=== PATIENT | male | born 1935 | race Caucasian/White ===

== ENCOUNTER 2019-01-29 20:50 | Inpatient (IN) ==
[2019-01-29] MEDS ORDERED: PANTOPRAZOLE 40 MG VIAL IV STA (21:22)
[2019-01-29 21:53] LABS: Basophils # 0.1 10*3/uL (0.0-0.2); Basophils % 0.5 % (0.0-0.8); Eosinophils # 0.1 10*3/uL (0.0-0.87); Eosinophils % 0.5 % (0.00-10.9); Hematocrit 34.4 VOL% (42.0-52.0); Hemoglobin 11.2 GM/DL (14.0-18.0); Immature Granulocytes % 0.6 %; Immature Granulocytes Absolute 0.09 #; Lymphocytes # 1.5 10*3/uL (1.4-4.0); Lymphocytes % 10.4 % (21.2-54.2); Mean Corpuscular HGB Conc 32.6 GM/DL (32-36); Mean Corpuscular Volume 95.8 FL (87-102); Mean Platelet Volume 9.5 FL (9.6-12.0); Monocytes % 4.9 % (1.7-12.7); Neutrophils % 83.1 % (38.7-73.9); Platelet Count 376 T/CUMM (130-400); Red Blood Count 3.59 MC/CUMM (3.8-5.5); White Blood Count 14.8 T/CUMM (4-12)
[2019-01-29 22:06] LABS: INR 4.5
[2019-01-29 22:09] LABS: PT Patient Result 48.4 SECS
[2019-01-29 22:17] LABS: Alanine Aminotransferase 14 U/L (16-61); Albumin 3.2 G/DL (3.4-5.0); Alkaline Phosphatase 75 U/L (45-117); Aspartate Amino Transferase 17 U/L (0-37); Blood Urea Nitrogen 33 MG/DL (7-18); Calcium 9.6 MG/DL (8.5-10.1); Glucose 189 MG/DL (74-106); Osmolality,Calculated 281.1 MOS/KG (273-304); Total Protein 7.4 G/DL (6.4-8.3)
[2019-01-29] MEDS ORDERED: POTASSIUM CHLORIDE 20 MEQ TABLET PO STA (22:32)
[2019-01-29] MEDS ORDERED: MORPHINE 4 MG/1 ML VIAL IV PRN (22:41)
[2019-01-29] MEDS ORDERED: NICOTINE 21 MG/24 HR PATCH TRANSDERM PRN (22:41)
[2019-01-29] MEDS ORDERED: diphenhydrAMINE CAP 25 MG CAPSULE PO PRN (22:41)
[2019-01-29] MEDS ORDERED: ONDANSETRON 4 MG/2 ML VIAL IV PRN (22:41)
[2019-01-29] MEDS ORDERED: PROMETHAZINE 25 MG/1 ML VIAL IM PRN (22:41)
[2019-01-30 00:54] LABS: Basophils # 0.1 10*3/uL (0.0-0.2); Basophils % 0.3 % (0.0-0.8); Eosinophils # 0.1 10*3/uL (0.0-0.87); Eosinophils % 0.5 % (0.00-10.9); Hematocrit 32.3 VOL% (42.0-52.0); Hemoglobin 10.7 GM/DL (14.0-18.0); Immature Granulocytes % 0.7 %; Lymphocytes % 13.8 % (21.2-54.2); Mean Corpuscular HGB Conc 33.1 GM/DL (32-36); Mean Corpuscular Volume 95.3 FL (87-102); Mean Platelet Volume 9.7 FL (9.6-12.0); Monocytes % 5.5 % (1.7-12.7); Neutrophils % 79.2 % (38.7-73.9); Platelet Count 371 T/CUMM (130-400); Red Blood Count 3.39 MC/CUMM (3.8-5.5); Red Cell Distribution Width 14.1 % (9.3-17.3); White Blood Count 14.3 T/CUMM (4-12)
[2019-01-30] MEDS: PANTOPRAZOLE INJ 200 MG in SODIUM CHLORIDE 0.9% 250 ML IV SCH (00:57)
[2019-01-30] MEDS: SODIUM CHLORIDE 0.9% 1,000 ML IV SCH ×3 (01:38→20:48)
[2019-01-30] MEDS ORDERED: MAGNESIUM SULF RIDER 4 GM in PREMIX 1 EACH IV PRN (04:33)
[2019-01-30] MEDS ORDERED: MAGNESIUM SULF RIDER 2 GM in PREMIX 1 EACH IV PRN (04:33)
[2019-01-30 05:04] LABS: Basophils # 0.1 10*3/uL (0.0-0.2); Basophils % 0.5 % (0.0-0.8); Eosinophils # 0.1 10*3/uL (0.0-0.87); Eosinophils % 0.8 % (0.00-10.9); Hematocrit 32.6 VOL% (42.0-52.0); Hemoglobin 10.7 GM/DL (14.0-18.0); Immature Granulocytes % 0.6 %; Immature Granulocytes Absolute 0.08 #; Lymphocytes # 2.3 10*3/uL (1.4-4.0); Lymphocytes % 15.5 % (21.2-54.2); Mean Corpuscular HGB Conc 32.8 GM/DL (32-36); Mean Corpuscular Volume 95.6 FL (87-102); Mean Platelet Volume 9.7 FL (9.6-12.0); Monocytes % 5.9 % (1.7-12.7); Neutrophils % 76.7 % (38.7-73.9); Platelet Count 357 T/CUMM (130-400); Red Blood Count 3.41 MC/CUMM (3.8-5.5); White Blood Count 14.5 T/CUMM (4-12)
[2019-01-30 05:46] LABS: Bilirubin,Total 0.6 MG/DL (0.2-1.0); Calcium 9.3 MG/DL (8.5-10.1); Total Protein 6.9 G/DL (6.4-8.3)
[2019-01-30] MEDS: POTASSIUM CHLORIDE RIDER 10 MEQ in PREMIX 1 EACH IV PRN ×11 (06:06→22:00)
[2019-01-30 08:15] LABS: Basophils # 0.1 10*3/uL (0.0-0.2); Basophils % 0.4 % (0.0-0.8); Eosinophils # 0.1 10*3/uL (0.0-0.87); Hemoglobin 10.5 GM/DL (14.0-18.0); Immature Granulocytes % 0.6 %; Immature Granulocytes Absolute 0.09 #; Lymphocytes # 2.3 10*3/uL (1.4-4.0); Lymphocytes % 15.9 % (21.2-54.2); Mean Corpuscular HGB Conc 31.8 GM/DL (32-36); Mean Corpuscular Volume 95.9 FL (87-102); Mean Platelet Volume 9.7 FL (9.6-12.0); Monocytes % 5.8 % (1.7-12.7); Neutrophils % 76.3 % (38.7-73.9); Platelet Count 367 T/CUMM (130-400); Red Blood Count 3.44 MC/CUMM (3.8-5.5); Red Cell Distribution Width 14.1 % (9.3-17.3); White Blood Count 14.4 T/CUMM (4-12)
[2019-01-30 11:54] LABS: Basophils # 0.1 10*3/uL (0.0-0.2); Basophils % 0.4 % (0.0-0.8); Eosinophils # 0.2 10*3/uL (0.0-0.87); Eosinophils % 0.8 % (0.00-10.9); Hematocrit 34.5 VOL% (42.0-52.0); Hemoglobin 11.1 GM/DL (14.0-18.0); Immature Granulocytes % 0.6 %; Immature Granulocytes Absolute 0.11 #; Lymphocytes # 2.7 10*3/uL (1.4-4.0); Lymphocytes % 14.8 % (21.2-54.2); Mean Corpuscular HGB Conc 32.2 GM/DL (32-36); Mean Corpuscular Volume 96.9 FL (87-102); Mean Platelet Volume 9.4 FL (9.6-12.0); Monocytes % 5.9 % (1.7-12.7); Neutrophils % 77.5 % (38.7-73.9); Platelet Count 388 T/CUMM (130-400); Red Blood Count 3.56 MC/CUMM (3.8-5.5); Red Cell Distribution Width 14.1 % (9.3-17.3); White Blood Count 18.2 T/CUMM (4-12)
[2019-01-30] MEDS: POTASSIUM CHLORIDE 20 MEQ TABLET PO SCH ×2 (19:02→22:00)
[2019-01-31] MEDS: POTASSIUM CHLORIDE 20 MEQ TABLET PO SCH (03:38)
[2019-01-31] MEDS: POTASSIUM CHLORIDE RIDER 10 MEQ in PREMIX 1 EACH IV PRN ×9 (03:39→22:42)
[2019-01-31] MEDS ORDERED: METOPROLOL TARTRATE 5 MG/5 ML VIAL IV ONE (04:40)
[2019-01-31 06:54] LABS: Amorphous Crystals,Urine Moderate /HPF (Few); Apearance,Urine CLEAR (Clear); Bilirubin,Urine Negative (Negative); Blood, Urine Small mg/dL (Negative); Glucose,Urine (UA) Negative (Negative); Ketones,Urine Negative (Negative); Nitrite,Urine Negative (Negative); Protein,Urine Negative; RBC,Urine 2 /HPF (0-4); Squamous Epithelial Cell,Urine Occasional /HPF (0-10); Urine Color Yellow (Yellow); Urine Urobilinogen < 2.0 EU/DL (0.2-1.0); WBC,Urine 2 /HPF (0-6)
[2019-01-31 08:12] LABS: INR 2.6
[2019-01-31 08:13] LABS: PT Patient Result 27.5 SECS
[2019-01-31 08:16] LABS: Basophils # 0.1 10*3/uL (0.0-0.2); Basophils % 0.5 % (0.0-0.8); Eosinophils # 0.2 10*3/uL (0.0-0.87); Eosinophils % 1.9 % (0.00-10.9); Hematocrit 28.1 VOL% (42.0-52.0); Immature Granulocytes % 0.3 %; Immature Granulocytes Absolute 0.04 #; Lymphocytes # 2.4 10*3/uL (1.4-4.0); Lymphocytes % 20.7 % (21.2-54.2); Mean Corpuscular HGB Conc 32.4 GM/DL (32-36); Mean Corpuscular Volume 97.2 FL (87-102); Mean Platelet Volume 9.7 FL (9.6-12.0); Neutrophils % 70.6 % (38.7-73.9); Platelet Count 324 T/CUMM (130-400); Red Blood Count 2.89 MC/CUMM (3.8-5.5); Red Cell Distribution Width 14.4 % (9.3-17.3); White Blood Count 11.8 T/CUMM (4-12)
[2019-01-31 08:17] LABS: Hemoglobin 9.1 GM/DL (14.0-18.0)
[2019-01-31 08:26] LABS: Albumin 2.8 G/DL (3.4-5.0); Bilirubin,Total 0.5 MG/DL (0.2-1.0); Calcium 8.7 MG/DL (8.5-10.1); Osmolality,Calculated 283.4 MOS/KG (273-304)
[2019-01-31] MEDS ORDERED: ETOMIDATE 20 MG/10 ML VIAL IV ONE (09:00)
[2019-01-31] MEDS ORDERED: PROPOFOL 200 MG/20 ML VIAL IV ONE (09:00)
[2019-01-31] MEDS ORDERED: LIDOCAINE 2% 5 ML VIAL ONE (09:00)
[2019-01-31] MEDS ORDERED: PHYTONADIONE 5 MG/5 ML ORAL.SYR PO ONE (09:07)
[2019-01-31] MEDS ORDERED: EPINEPHrine 1 MG/ML VIAL ONE (09:14)
[2019-01-31] MEDS: PANTOPRAZOLE INJ 200 MG in SODIUM CHLORIDE 0.9% 250 ML IV SCH (10:42)
[2019-01-31] MEDS: SODIUM CHLORIDE 0.9% 1,000 ML IV SCH (14:08)
[2019-01-31] MEDS: FINASTERIDE 5 MG TABLET PO SCH (14:30)
[2019-01-31] MEDS: LEVOTHYROXINE 88 MCG TABLET PO SCH (14:30)
[2019-01-31] MEDS: amLODIPine 5 MG TABLET PO SCH (14:30)
[2019-01-31] MEDS: ATORVASTATIN 20 MG TABLET PO SCH (14:30)
[2019-01-31] MEDS: TAMSULOSIN 0.4 MG CAPSULE PO SCH (14:30)
[2019-01-31] MEDS ORDERED: MONTELUKAST 10 MG TABLET PO SCH (21:00)
[2019-02-01 02:09] LABS: Basophils % 0.4 % (0.0-0.8); Eosinophils # 0.3 10*3/uL (0.0-0.87); Eosinophils % 3.2 % (0.00-10.9); Hematocrit 27.4 VOL% (42.0-52.0); Hemoglobin 8.7 GM/DL (14.0-18.0); Immature Granulocytes % 0.4 %; Immature Granulocytes Absolute 0.04 #; Lymphocytes % 20.7 % (21.2-54.2); Mean Corpuscular HGB Conc 31.8 GM/DL (32-36); Mean Corpuscular Volume 98.6 FL (87-102); Mean Platelet Volume 9.9 FL (9.6-12.0); Neutrophils % 69.3 % (38.7-73.9); Platelet Count 298 T/CUMM (130-400); Red Blood Count 2.78 MC/CUMM (3.8-5.5); Red Cell Distribution Width 14.5 % (9.3-17.3); White Blood Count 9.6 T/CUMM (4-12)
[2019-02-01 02:17] LABS: INR 1.4; PT Patient Result 15.2 SECS
[2019-02-01] MEDS: LEVOTHYROXINE 88 MCG TABLET PO SCH (06:09)
[2019-02-01 07:40] LABS: Albumin 2.7 G/DL (3.4-5.0); Bilirubin,Total 0.6 MG/DL (0.2-1.0); Calcium 8.6 MG/DL (8.5-10.1); Osmolality,Calculated 281.3 MOS/KG (273-304); Total Protein 5.9 G/DL (6.4-8.3)
[2019-02-01] MEDS: SODIUM CHLORIDE 0.9% 1,000 ML IV SCH ×3 (08:00→12:51)
[2019-02-01] MEDS ORDERED: LIDOCAINE 2% 5 ML VIAL ONE (09:00)
[2019-02-01] MEDS ORDERED: PROPOFOL 200 MG/20 ML VIAL IV ONE (09:00)
[2019-02-01] MEDS: FINASTERIDE 5 MG TABLET PO SCH (10:03)
[2019-02-01] MEDS: ATORVASTATIN 20 MG TABLET PO SCH (10:03)
[2019-02-01] MEDS: TAMSULOSIN 0.4 MG CAPSULE PO SCH (10:03)
[2019-02-01] MEDS: POTASSIUM CHLORIDE RIDER 10 MEQ in PREMIX 1 EACH IV PRN ×2 (10:03→12:45)
[2019-02-01] MEDS: amLODIPine 5 MG TABLET PO SCH (10:03)
[2019-02-01 11:45] LABS: Hematocrit 29.4 VOL% (42.0-52.0); Hemoglobin 9.3 GM/DL (14.0-18.0)
[2019-02-01] MEDS ORDERED: POTASSIUM CHLORIDE 20 MEQ TABLET PO SCH (13:49)
[2019-02-01] MEDS: PANTOPRAZOLE INJ 200 MG in SODIUM CHLORIDE 0.9% 250 ML IV SCH (14:21)
[2019-02-01 16:49] VITALS: BP 123/60
[2019-02-02] MEDS ORDERED: LOSARTAN 50 MG TABLET PO SCH (09:00)
[2019-02-02] MEDS ORDERED: PANTOPRAZOLE 40 MG TABLET PO SCH (09:00)
[2019-02-02] MEDS ORDERED: PROPRANOLOL 20 MG TABLET PO SCH (09:00)
== END 2019-02-01 16:59 | DRG 813 ==
LOC: EDUNIT# → N.ED 20:50 → N.EDINP 20:50 → N.5E 23:36
PROVIDERS: ADMIT Internal Medicine; ATTEND Internal Medicine

== ENCOUNTER 2019-08-18 13:47 | Inpatient (IN) ==
[2019-08-18 15:14] LABS: Basophils # 0.1 10*3/uL (0.0-0.2); Basophils % 0.3 % (0.0-0.8); Eosinophils # 0.1 10*3/uL (0.0-0.87); Eosinophils % 0.5 % (0.00-10.9); Hematocrit 39.5 VOL% (42.0-52.0); Hemoglobin 13.6 GM/DL (14.0-18.0); Immature Granulocytes % 0.5 %; Immature Granulocytes Absolute 0.08 #; Lymphocytes # 2.8 10*3/uL (1.4-4.0); Mean Corpuscular HGB Conc 34.4 GM/DL (32-36); Mean Corpuscular Volume 86.8 FL (87-102); Mean Platelet Volume 9.3 FL (9.6-12.0); Monocytes % 6.6 % (1.7-12.7); Neutrophils % 76.1 % (38.7-73.9); Platelet Count 459 T/CUMM (130-400); Red Blood Count 4.55 MC/CUMM (3.8-5.5); Red Cell Distribution Width 14.4 % (9.3-17.3); White Blood Count 17.3 T/CUMM (4-12)
[2019-08-18 15:22] LABS: INR 1.1; PT Patient Result 12.1 SECS (9.6-12.2)
[2019-08-18 15:39] LABS: Calcium 9.1 MG/DL (8.5-10.1); Osmolality,Calculated 264.1 MOS/KG (273-304)
[2019-08-18] MEDS ORDERED: POTASSIUM CHLORIDE 8 MEQ CAPSULE PO STA (16:08)
[2019-08-18] MEDS ORDERED: MAGNESIUM SULF RIDER 4 GM in PREMIX 1 EACH IV PRN (17:13)
[2019-08-18] MEDS ORDERED: MAGNESIUM SULF RIDER 2 GM in PREMIX 1 EACH IV PRN (17:13)
[2019-08-18] MEDS ORDERED: ACETAMINOPHEN 325 MG TABLET PO PRN (17:14)
[2019-08-18] MEDS ORDERED: ONDANSETRON 4 MG/2 ML VIAL IV PRN (17:14)
[2019-08-18] MEDS ORDERED: chlordiazePOXIDE 10 MG CAPSULE PO PRN (17:52)
[2019-08-18] MEDS ORDERED: LORazepam 2 MG/1 ML VIAL IV PRN (17:54)
[2019-08-18] MEDS ORDERED: cefTRIAXone 1,000 MG in SYRINGE 1 EACH IV SCH (18:00)
[2019-08-18] MEDS: SODIUM CHLORIDE 0.9% 1,000 ML IV SCH (21:10)
[2019-08-18] MEDS: MONTELUKAST 10 MG TABLET PO SCH (21:11)
[2019-08-18] MEDS: LEVOTHYROXINE 88 MCG TABLET PO SCH (21:11)
[2019-08-18] MEDS: ASPIRIN EC 81 MG TABLET PO SCH (21:11)
[2019-08-18] MEDS: POTASSIUM CHLORIDE 20 MEQ TABLET PO PRN (21:11)
[2019-08-18] MEDS: ATORVASTATIN 20 MG TABLET PO SCH (21:12)
[2019-08-18] MEDS: PANTOPRAZOLE 40 MG TABLET PO SCH (21:12)
[2019-08-18] MEDS: WARFARIN 3 MG TABLET PO SCH (21:12)
[2019-08-18] MEDS: TAMSULOSIN 0.4 MG CAPSULE PO SCH (21:12)
[2019-08-18 23:02] LABS: Calcium 9.6 MG/DL (8.5-10.1); Osmolality,Calculated 263.1 MOS/KG (273-304)
[2019-08-19 03:19] LABS: Basophils # 0.1 10*3/uL (0.0-0.2); Basophils % 0.5 % (0.0-0.8); Eosinophils # 0.1 10*3/uL (0.0-0.87); Eosinophils % 0.8 % (0.00-10.9); Hematocrit 39.6 VOL% (42.0-52.0); Hemoglobin 13.2 GM/DL (14.0-18.0); Immature Granulocytes % 0.6 %; Immature Granulocytes Absolute 0.08 #; Lymphocytes # 2.2 10*3/uL (1.4-4.0); Lymphocytes % 15.7 % (21.2-54.2); Mean Corpuscular HGB Conc 33.3 GM/DL (32-36); Mean Platelet Volume 9.3 FL (9.6-12.0); Monocytes % 6.7 % (1.7-12.7); Neutrophils % 75.7 % (38.7-73.9); Platelet Count 408 T/CUMM (130-400); Red Cell Distribution Width 14.5 % (9.3-17.3); White Blood Count 13.9 T/CUMM (4-12)
[2019-08-19 03:57] LABS: Calcium 8.9 MG/DL (8.5-10.1); Osmolality,Calculated 268.8 MOS/KG (273-304); Risk Ratio 3.14; Thyroid Stimulating Hormone 0.183 uIU/ml (0.358-3.74); VLDL CHOLESTEROL 22.6 MG/DL
[2019-08-19] MEDS: POTASSIUM CHLORIDE 20 MEQ TABLET PO PRN ×2 (05:47→09:17)
[2019-08-19 08:27] LABS: INR 1.2; PT Patient Result 12.7 SECS (9.6-12.2)
[2019-08-19] MEDS: SODIUM CHLORIDE 0.9% 1,000 ML IV SCH ×2 (08:37→09:23)
[2019-08-19 08:41] LABS: Apearance,Urine CLOUDY (Clear); Bacteria,Urine Moderate /HPF (Few); Bilirubin,Urine Negative (Negative); Blood, Urine Negative (Negative); Glucose,Urine (UA) Negative (Negative); Ketones,Urine Negative (Negative); Nitrite,Urine Negative (Negative); Protein,Urine Negative; RBC,Urine 14 /HPF (0-4); Urine Color Yellow (Yellow); Urine Specific Gravity 1.011 (1.001-1.035); Urine Urobilinogen < 2.0 EU/DL (0.2-1.0); WBC,Urine 799 /HPF (0-6)
[2019-08-19] MEDS: FERROUS SULFATE 325 MG TABLET PO SCH (09:17)
[2019-08-19] MEDS: FOLIC ACID 1 MG TABLET PO SCH (09:17)
[2019-08-19] MEDS: THIAMINE 100 MG TABLET PO SCH (09:18)
[2019-08-19] MEDS: MAGNESIUM OXIDE 400 MG TABLET PO SCH (09:18)
[2019-08-19] MEDS: MULTIVITAMIN (BEROCCA) TABLET PO SCH (09:18)
[2019-08-19] MEDS: FINASTERIDE 5 MG TABLET PO SCH (09:18)
[2019-08-19] MEDS ORDERED: POTASSIUM CHLORIDE IV SCH (13:00)
[2019-08-19] MEDS ORDERED: SODIUM CHLORIDE IV SCH (13:00)
[2019-08-19] MEDS ORDERED: cefTRIAXone 1,000 MG in SYRINGE 1 EACH IV SCH (13:30)
[2019-08-19] MEDS: cefTRIAXone 1,000 MG in SYRINGE 1 EACH IV SCH (14:54)
[2019-08-19] MEDS: SODIUM CHLOR 0.9% KCL 40 MEQ 40 MEQ/1,000 ML BAG IV SCH (15:02)
[2019-08-19] MEDS: WARFARIN 3 MG TABLET PO SCH (17:34)
[2019-08-19] MEDS: PANTOPRAZOLE 40 MG TABLET PO SCH (22:20)
[2019-08-19] MEDS: ASPIRIN EC 81 MG TABLET PO SCH (22:20)
[2019-08-19] MEDS: LEVOTHYROXINE 88 MCG TABLET PO SCH (22:20)
[2019-08-19] MEDS: MONTELUKAST 10 MG TABLET PO SCH (22:20)
[2019-08-19] MEDS: TAMSULOSIN 0.4 MG CAPSULE PO SCH (22:20)
[2019-08-19] MEDS: ATORVASTATIN 20 MG TABLET PO SCH (22:21)
[2019-08-20] MEDS: SODIUM CHLOR 0.9% KCL 40 MEQ 40 MEQ/1,000 ML BAG IV SCH ×2 (04:34→17:19)
[2019-08-20 06:49] LABS: Basophils # 0.1 10*3/uL (0.0-0.2); Basophils % 0.5 % (0.0-0.8); Eosinophils # 0.1 10*3/uL (0.0-0.87); Hematocrit 34.3 VOL% (42.0-52.0); Hemoglobin 11.2 GM/DL (14.0-18.0); Immature Granulocytes % 0.3 %; Immature Granulocytes Absolute 0.04 #; Lymphocytes # 1.8 10*3/uL (1.4-4.0); Lymphocytes % 15.3 % (21.2-54.2); Mean Corpuscular HGB Conc 32.7 GM/DL (32-36); Mean Corpuscular Volume 90.3 FL (87-102); Mean Platelet Volume 9.6 FL (9.6-12.0); Monocytes % 6.6 % (1.7-12.7); Neutrophils % 76.3 % (38.7-73.9); Platelet Count 374 T/CUMM (130-400); Red Cell Distribution Width 14.7 % (9.3-17.3); White Blood Count 11.7 T/CUMM (4-12)
[2019-08-20 06:55] LABS: INR 1.2
[2019-08-20 07:02] LABS: Calcium 8.4 MG/DL (8.5-10.1); Osmolality,Calculated 272.2 MOS/KG (273-304)
[2019-08-20] MEDS ORDERED: POTASSIUM CHLORIDE 20 MEQ TABLET PO ONE (07:36)
[2019-08-20] MEDS: MAGNESIUM OXIDE 400 MG TABLET PO SCH (08:09)
[2019-08-20] MEDS: MULTIVITAMIN (BEROCCA) TABLET PO SCH (08:09)
[2019-08-20] MEDS: FOLIC ACID 1 MG TABLET PO SCH (08:09)
[2019-08-20] MEDS: THIAMINE 100 MG TABLET PO SCH (08:09)
[2019-08-20] MEDS: FERROUS SULFATE 325 MG TABLET PO SCH (08:09)
[2019-08-20] MEDS: FINASTERIDE 5 MG TABLET PO SCH (08:09)
[2019-08-20] MEDS ORDERED: WARFARIN 2 MG TABLET PO SCH (09:00)
[2019-08-20] MEDS ORDERED: WARFARIN 3 MG TABLET PO SCH (09:00)
[2019-08-20] MEDS: cefTRIAXone 1,000 MG in SYRINGE 1 EACH IV SCH (13:30)
[2019-08-20] MEDS: WARFARIN 5 MG TABLET PO SCH (17:19)
[2019-08-20] MEDS: ASPIRIN EC 81 MG TABLET PO SCH (22:30)
[2019-08-20] MEDS: LEVOTHYROXINE 88 MCG TABLET PO SCH (22:31)
[2019-08-20] MEDS: MONTELUKAST 10 MG TABLET PO SCH (22:31)
[2019-08-20] MEDS: ATORVASTATIN 20 MG TABLET PO SCH (22:31)
[2019-08-20] MEDS: TAMSULOSIN 0.4 MG CAPSULE PO SCH (22:31)
[2019-08-20] MEDS: PANTOPRAZOLE 40 MG TABLET PO SCH (22:31)
[2019-08-21 04:32] LABS: Basophils % 0.3 % (0.0-0.8); Eosinophils % 0.3 % (0.00-10.9); Hematocrit 34.3 VOL% (42.0-52.0); Hemoglobin 11.1 GM/DL (14.0-18.0); Immature Granulocytes % 0.6 %; Immature Granulocytes Absolute 0.09 #; Lymphocytes # 1.4 10*3/uL (1.4-4.0); Lymphocytes % 9.6 % (21.2-54.2); Mean Corpuscular HGB Conc 32.4 GM/DL (32-36); Mean Corpuscular Volume 92.5 FL (87-102); Mean Platelet Volume 9.1 FL (9.6-12.0); Neutrophils % 82.2 % (38.7-73.9); Platelet Count 365 T/CUMM (130-400); Red Blood Count 3.71 MC/CUMM (3.8-5.5); Red Cell Distribution Width 15.1 % (9.3-17.3); White Blood Count 14.3 T/CUMM (4-12)
[2019-08-21 04:43] LABS: INR 1.3
[2019-08-21 04:44] LABS: INR 1.3; PT Patient Result 14.1 SECS (9.6-12.2)
[2019-08-21 05:06] LABS: Calcium 8.8 MG/DL (8.5-10.1); Osmolality,Calculated 280.5 MOS/KG (273-304)
[2019-08-21] MEDS: SODIUM CHLOR 0.9% KCL 40 MEQ 40 MEQ/1,000 ML BAG IV SCH (08:08)
[2019-08-21] MEDS: MAGNESIUM OXIDE 400 MG TABLET PO SCH (10:02)
[2019-08-21] MEDS: FINASTERIDE 5 MG TABLET PO SCH (10:02)
[2019-08-21] MEDS: MULTIVITAMIN (BEROCCA) TABLET PO SCH (10:02)
[2019-08-21] MEDS: THIAMINE 100 MG TABLET PO SCH (10:02)
[2019-08-21] MEDS: FOLIC ACID 1 MG TABLET PO SCH (10:03)
[2019-08-21] MEDS: FERROUS SULFATE 325 MG TABLET PO SCH (10:03)
[2019-08-21] MEDS: POTASSIUM CHLORIDE 10 MEQ TABLET PO SCH ×2 (10:03→22:43)
[2019-08-21] MEDS: NEOMYCIN/POLYMYXIN/BACITRACIN OINT 0.9 GM PACK TOP SCH (14:35)
[2019-08-21] MEDS: cefTRIAXone 1,000 MG in SYRINGE 1 EACH IV SCH (14:35)
[2019-08-21] MEDS: WARFARIN 5 MG TABLET PO SCH (18:20)
[2019-08-21] MEDS: TAMSULOSIN 0.4 MG CAPSULE PO SCH (22:44)
[2019-08-21] MEDS: ATORVASTATIN 20 MG TABLET PO SCH (22:44)
[2019-08-21] MEDS: PANTOPRAZOLE 40 MG TABLET PO SCH (22:44)
[2019-08-21] MEDS: MONTELUKAST 10 MG TABLET PO SCH (22:44)
[2019-08-21] MEDS: ASPIRIN EC 81 MG TABLET PO SCH (22:44)
[2019-08-21] MEDS: LEVOTHYROXINE 88 MCG TABLET PO SCH (22:44)
[2019-08-22 05:52] LABS: Basophils # 0.1 10*3/uL (0.0-0.2); Basophils % 0.4 % (0.0-0.8); Eosinophils # 0.1 10*3/uL (0.0-0.87); Eosinophils % 0.4 % (0.00-10.9); Hematocrit 35.2 VOL% (42.0-52.0); Hemoglobin 11.4 GM/DL (14.0-18.0); Immature Granulocytes % 0.5 %; Immature Granulocytes Absolute 0.08 #; Lymphocytes # 1.2 10*3/uL (1.4-4.0); Lymphocytes % 7.7 % (21.2-54.2); Mean Corpuscular HGB Conc 32.4 GM/DL (32-36); Mean Corpuscular Volume 91.2 FL (87-102); Mean Platelet Volume 9.1 FL (9.6-12.0); Monocytes % 4.4 % (1.7-12.7); Neutrophils % 86.6 % (38.7-73.9); Platelet Count 356 T/CUMM (130-400); Red Blood Count 3.86 MC/CUMM (3.8-5.5); Red Cell Distribution Width 14.9 % (9.3-17.3)
[2019-08-22 05:59] LABS: INR 1.4; PT Patient Result 15.1 SECS (9.6-12.2)
[2019-08-22 06:19] LABS: Calcium 8.8 MG/DL (8.5-10.1)
[2019-08-22] MEDS: FINASTERIDE 5 MG TABLET PO SCH (09:39)
[2019-08-22] MEDS: POTASSIUM CHLORIDE 10 MEQ TABLET PO SCH (09:39)
[2019-08-22] MEDS: THIAMINE 100 MG TABLET PO SCH (09:39)
[2019-08-22] MEDS: NEOMYCIN/POLYMYXIN/BACITRACIN OINT 0.9 GM PACK TOP SCH (09:39)
[2019-08-22] MEDS: MAGNESIUM OXIDE 400 MG TABLET PO SCH (09:39)
[2019-08-22] MEDS: FERROUS SULFATE 325 MG TABLET PO SCH (09:39)
[2019-08-22] MEDS: FOLIC ACID 1 MG TABLET PO SCH (09:39)
[2019-08-22] MEDS: MULTIVITAMIN (BEROCCA) TABLET PO SCH (09:39)
[2019-08-22 13:03] VITALS: BP 126/64
[2019-08-22] MEDS: cefTRIAXone 1,000 MG in SYRINGE 1 EACH IV SCH (14:57)
[2019-08-23] MEDS ORDERED: DOXYCYCLINE HYCLATE 100 MG CAPSULE PO SCH (09:00)
== END 2019-08-22 16:19 | disposition swing bed (61) | DRG 312 ==
LOC: EDBD → EDUNIT# → N.ED 13:47 → N.EDINP 17:14 → SUATTDRO 17:14 → N.TELES 17:49
PROVIDERS: ADMIT Internal Medicine; ATTEND Emergency Medicine

== ENCOUNTER 2019-11-08 09:50 | Inpatient (IN) ==
[2019-11-08] MEDS ORDERED: SODIUM CHLORIDE 0.9% 1,000 ML IV STA (09:56)
[2019-11-08 10:24] LABS: Basophils % 0.1 % (0.0-0.8); Immature Granulocytes % 1.9 %; Immature Granulocytes Absolute 0.64 #; Lymphocytes # 2.1 10*3/uL (1.4-4.0); Lymphocytes % 6.3 % (21.2-54.2); Mean Corpuscular HGB Conc 32.6 GM/DL (32-36); Mean Corpuscular Volume 94.5 FL (87-102); Mean Platelet Volume 10.4 FL (9.6-12.0); Monocytes % 3.4 % (1.7-12.7); Neutrophils % 88.3 % (38.7-73.9); Platelet Count 420 T/CUMM (130-400); Red Blood Count 1.82 MC/CUMM (3.8-5.5); Red Cell Distribution Width 16.3 % (9.3-17.3)
[2019-11-08 10:26] LABS: Hematocrit 17.2 VOL% (42.0-52.0); Hemoglobin 5.6 GM/DL (14.0-18.0)
[2019-11-08] MEDS ORDERED: SODIUM CHLORIDE 0.9% 1,000 ML IV PRN ×3 (10:31→12:24)
[2019-11-08 10:36] LABS: Hypochromasia 2+; Lymphocytes 3 % (20-55); Microcytosis Slight; Platelet Estimate Adequate; Segmented Neutrophils 94 % (50-85); Total Cells Counted 100
[2019-11-08 10:39] LABS: INR 4.4; Partial Thromboplastin Time 34.7 SECS (23.9-33.8)
[2019-11-08] MEDS ORDERED: PROTHROMBIN COMPLEX IV ONE (10:54)
[2019-11-08 10:59] LABS: Alanine Aminotransferase 16 U/L (16-61); Albumin 2.3 G/DL (3.4-5.0); Alkaline Phosphatase 56 U/L (45-117); Aspartate Amino Transferase 26 U/L (0-37); Blood Urea Nitrogen 100 MG/DL (7-18); Calcium 8.5 MG/DL (8.5-10.1); Estimated Glom Filtration Rate 17 ML/MIN; Glucose 206 MG/DL (74-106); Osmolality,Calculated 304.2 MOS/KG (273-304); Total Protein 5.1 G/DL (6.4-8.3)
[2019-11-08] MEDS ORDERED: LEVOFLOXACIN INJ 500 MG in PREMIX 1 EACH IV STA (11:08)
[2019-11-08] MEDS ORDERED: PANTOPRAZOLE 40 MG VIAL IV STA (11:10)
[2019-11-08] MEDS ORDERED: PHYTONADIONE 10 MG/1 ML AMP SUBCUT STA (11:20)
[2019-11-08] MEDS ORDERED: ONDANSETRON 4 MG/2 ML VIAL IV PRN (12:06)
[2019-11-08] MEDS ORDERED: FUROSEMIDE 20 MG/2 ML VIAL ONE (16:10)
[2019-11-08 18:45] LABS: Basophils # 0.1 10*3/uL (0.0-0.2); Basophils % 0.1 % (0.0-0.8); Hematocrit 26.6 VOL% (42.0-52.0); Hemoglobin 8.6 GM/DL (14.0-18.0); Immature Granulocytes % 2.2 %; Immature Granulocytes Absolute 0.73 #; Lymphocytes # 2.2 10*3/uL (1.4-4.0); Lymphocytes % 6.6 % (21.2-54.2); Mean Corpuscular HGB Conc 32.3 GM/DL (32-36); Mean Corpuscular Volume 93.3 FL (87-102); Mean Platelet Volume 10.2 FL (9.6-12.0); Monocytes % 4.2 % (1.7-12.7); NRBC # 0.03 10*3/uL; Neutrophils % 86.9 % (38.7-73.9); Platelet Count 302 T/CUMM (130-400); Red Blood Count 2.85 MC/CUMM (3.8-5.5); Red Cell Distribution Width 14.6 % (9.3-17.3); White Blood Count 33.8 T/CUMM (4-12)
[2019-11-08 19:05] LABS: Band Neutrophils 2 % (0-10); Lymphocytes 7 % (20-55); Metamyelocytes 1 %; Segmented Neutrophils 90 % (50-85); Total Cells Counted 100
[2019-11-08 19:06] LABS: Anisocytosis 1+; Macrocytosis 1+; Microcytosis Slight; Platelet Estimate Normal; Polychromasia 1+
[2019-11-08 19:14] LABS: Folate 12.6 NG/ML (5.4-24.0); Vitamin B12 457 PG/ML (211-911)
[2019-11-08 20:11] LABS: Sedimentation Rate-Westergren 43 MM/HR (0-20)
[2019-11-08] MEDS: SODIUM CHLORIDE 0.9% 1,000 ML IV SCH (21:41)
[2019-11-08] MEDS: PANTOPRAZOLE 40 MG VIAL IV SCH (21:42)
[2019-11-09 00:58] LABS: Hematocrit 18.1 VOL% (42.0-52.0)
[2019-11-09 01:03] LABS: Hemoglobin 5.9 GM/DL (14.0-18.0)
[2019-11-09 02:37] LABS: Basophils % 0.2 % (0.0-0.8); Hematocrit 21.4 VOL% (42.0-52.0); Immature Granulocytes % 1.4 %; Immature Granulocytes Absolute 0.37 #; Lymphocytes # 2.2 10*3/uL (1.4-4.0); Lymphocytes % 8.4 % (21.2-54.2); Mean Corpuscular HGB Conc 32.7 GM/DL (32-36); Mean Corpuscular Volume 91.8 FL (87-102); Mean Platelet Volume 10.3 FL (9.6-12.0); Monocytes % 5.3 % (1.7-12.7); NRBC # 0.05 10*3/uL; Neutrophils % 84.7 % (38.7-73.9); Platelet Count 267 T/CUMM (130-400); Red Blood Count 2.33 MC/CUMM (3.8-5.5); Red Cell Distribution Width 15.4 % (9.3-17.3); White Blood Count 26.2 T/CUMM (4-12)
[2019-11-09 02:46] LABS: INR 2.4
[2019-11-09 03:19] LABS: PT Patient Result 24.3 SECS (9.8-11.9)
[2019-11-09 03:29] LABS: Albumin 2.2 G/DL (3.4-5.0); Calcium 7.5 MG/DL (8.5-10.1); Total Protein 4.8 G/DL (6.4-8.3)
[2019-11-09 04:00] LABS: Hypochromasia 1+; Platelet Estimate Normal; Polychromasia Few
[2019-11-09] MEDS: POTASSIUM CHLORIDE RIDER 10 MEQ in PREMIX 1 EACH IV PRN ×7 (05:44→23:19)
[2019-11-09 06:38] LABS: Hematocrit 20.5 VOL% (42.0-52.0); Hemoglobin 6.9 GM/DL (14.0-18.0)
[2019-11-09] MEDS: SODIUM CHLORIDE 0.9% 1,000 ML IV SCH ×2 (07:59→18:31)
[2019-11-09] MEDS: PANTOPRAZOLE 40 MG VIAL IV SCH ×2 (08:56→21:24)
[2019-11-09] MEDS ORDERED: PANTOPRAZOLE 40 MG TABLET PO SCH (09:00)
[2019-11-09] MEDS ORDERED: FUROSEMIDE 40 MG/4 ML VIAL IV PRN ×2 (10:07→16:10)
[2019-11-09] MEDS ORDERED: SODIUM CHLORIDE 0.9% 1,000 ML IV PRN ×2 (10:07→10:34)
[2019-11-09] MEDS ORDERED: PHYTONADIONE 10 MG/1 ML AMP SUBCUT ONE (11:00)
[2019-11-09 15:49] LABS: Hematocrit 24.7 VOL% (42.0-52.0); Hemoglobin 8.2 GM/DL (14.0-18.0)
[2019-11-09 18:32] LABS: Hemoglobin 9.1 GM/DL (14.0-18.0)
[2019-11-09] MEDS: diphenhydrAMINE CAP 25 MG CAPSULE PO PRN (21:25)
[2019-11-09] MEDS: ACETAMINOPHEN 500 MG TABLET PO PRN (21:26)
[2019-11-09 21:49] LABS: Hematocrit 25.5 VOL% (42.0-52.0); Hemoglobin 8.5 GM/DL (14.0-18.0)
[2019-11-10] MEDS: POTASSIUM CHLORIDE RIDER 10 MEQ in PREMIX 1 EACH IV PRN ×8 (00:26→18:00)
[2019-11-10 02:04] LABS: Apearance,Urine CLEAR (Clear); Bilirubin,Urine Negative (Negative); Blood, Urine Negative (Negative); Glucose,Urine (UA) Negative (Negative); Ketones,Urine Negative (Negative); Nitrite,Urine Negative (Negative); Protein,Urine Negative; RBC,Urine <1 /HPF (0-4); Urine Color Straw (Yellow); Urine Specific Gravity 1.011 (1.001-1.035); Urine Urobilinogen < 2.0 EU/DL (0.2-1.0); WBC,Urine <1 /HPF (0-6)
[2019-11-10] MEDS: SODIUM CHLORIDE 0.9% 1,000 ML IV SCH ×2 (04:21→21:12)
[2019-11-10 05:51] LABS: Basophils % 0.2 % (0.0-0.8); Eosinophils # 0.1 10*3/uL (0.0-0.87); Eosinophils % 0.7 % (0.00-10.9); Hematocrit 25.5 VOL% (42.0-52.0); Hemoglobin 8.3 GM/DL (14.0-18.0); Immature Granulocytes Absolute 0.14 #; Lymphocytes # 2.3 10*3/uL (1.4-4.0); Lymphocytes % 16.6 % (21.2-54.2); Mean Corpuscular HGB Conc 32.5 GM/DL (32-36); Mean Corpuscular Volume 90.4 FL (87-102); Monocytes % 6.8 % (1.7-12.7); NRBC # 0.04 10*3/uL; Neutrophils % 74.7 % (38.7-73.9); Platelet Count 220 T/CUMM (130-400); Red Blood Count 2.82 MC/CUMM (3.8-5.5); Red Cell Distribution Width 15.6 % (9.3-17.3); White Blood Count 13.7 T/CUMM (4-12)
[2019-11-10 06:04] LABS: Calcium 8.1 MG/DL (8.5-10.1); Osmolality,Calculated 301.4 MOS/KG (273-304)
[2019-11-10 06:58] LABS: INR 1.1; PT Patient Result 11.9 SECS (9.8-11.9)
[2019-11-10] MEDS ORDERED: LEVOFLOXACIN INJ 500 MG in PREMIX 1 EACH IV SCH (09:00)
[2019-11-10 09:41] LABS: Hematocrit 26.1 VOL% (42.0-52.0); Hemoglobin 8.6 GM/DL (14.0-18.0)
[2019-11-10] MEDS: PANTOPRAZOLE 40 MG VIAL IV SCH ×2 (09:50→22:38)
[2019-11-10] MEDS: ACETAMINOPHEN 325 MG TABLET PO PRN ×2 (11:14→16:07)
[2019-11-10] MEDS ORDERED: MORPHINE 4 MG/1 ML VIAL IV PRN (15:07)
[2019-11-10] MEDS: FINASTERIDE 5 MG TABLET PO SCH (16:00)
[2019-11-10] MEDS: TAMSULOSIN 0.4 MG CAPSULE PO SCH (22:39)
[2019-11-10] MEDS: ATORVASTATIN 20 MG TABLET PO SCH (22:39)
[2019-11-10] MEDS: diphenhydrAMINE CAP 25 MG CAPSULE PO PRN (22:40)
[2019-11-10] MEDS: ACETAMINOPHEN 500 MG TABLET PO PRN (22:40)
[2019-11-11] MEDS: POTASSIUM CHLORIDE RIDER 10 MEQ in PREMIX 1 EACH IV PRN ×5 (00:10→09:05)
[2019-11-11 06:31] LABS: Basophils % 0.2 % (0.0-0.8); Eosinophils # 0.2 10*3/uL (0.0-0.87); Eosinophils % 1.4 % (0.00-10.9); Hematocrit 26.3 VOL% (42.0-52.0); Hemoglobin 8.4 GM/DL (14.0-18.0); Immature Granulocytes % 0.9 %; Lymphocytes # 1.8 10*3/uL (1.4-4.0); Lymphocytes % 15.4 % (21.2-54.2); Mean Corpuscular HGB Conc 31.9 GM/DL (32-36); Mean Corpuscular Volume 93.9 FL (87-102); Mean Platelet Volume 9.2 FL (9.6-12.0); Monocytes % 7.4 % (1.7-12.7); Neutrophils % 74.7 % (38.7-73.9); Platelet Count 238 T/CUMM (130-400); Red Cell Distribution Width 17.5 % (9.3-17.3); White Blood Count 11.6 T/CUMM (4-12)
[2019-11-11 06:40] LABS: PT Patient Result 10.9 SECS (9.8-11.9)
[2019-11-11 06:46] LABS: Calcium 7.7 MG/DL (8.5-10.1); Osmolality,Calculated 288.3 MOS/KG (273-304)
[2019-11-11] MEDS: SODIUM CHLORIDE 0.9% 1,000 ML IV SCH ×2 (07:42→16:16)
[2019-11-11] MEDS ORDERED: ETOMIDATE 20 MG/10 ML VIAL IV ONE (09:00)
[2019-11-11] MEDS ORDERED: LIDOCAINE 2% 5 ML VIAL ONE (09:00)
[2019-11-11] MEDS ORDERED: propofoL 200 MG/20 ML VIAL IV ONE (09:00)
[2019-11-11] MEDS: PANTOPRAZOLE 40 MG VIAL IV SCH (10:50)
[2019-11-11 11:19] LABS: Hemoglobin A1 (Alkaline) 97.4 % (96.5-98.5); Hemoglobin A2 (Alkaline) 2.6 % (1.5-3.5)
[2019-11-11] MEDS: LEVOTHYROXINE 88 MCG TABLET PO SCH (14:27)
[2019-11-11] MEDS: ACETAMINOPHEN 325 MG TABLET PO PRN (14:27)
[2019-11-11] MEDS: FINASTERIDE 5 MG TABLET PO SCH (16:28)
[2019-11-11] MEDS: PANTOPRAZOLE 40 MG TABLET PO SCH (19:24)
[2019-11-11] MEDS: TAMSULOSIN 0.4 MG CAPSULE PO SCH (21:15)
[2019-11-11] MEDS: ATORVASTATIN 20 MG TABLET PO SCH (21:15)
[2019-11-12] MEDS: SODIUM CHLORIDE 0.9% 1,000 ML IV SCH ×3 (04:10→19:45)
[2019-11-12 06:22] LABS: Basophils % 0.2 % (0.0-0.8); Eosinophils # 0.2 10*3/uL (0.0-0.87); Eosinophils % 1.7 % (0.00-10.9); Hematocrit 25.6 VOL% (42.0-52.0); Immature Granulocytes % 0.7 %; Immature Granulocytes Absolute 0.09 #; Lymphocytes # 1.4 10*3/uL (1.4-4.0); Lymphocytes % 11.4 % (21.2-54.2); Mean Corpuscular HGB Conc 31.3 GM/DL (32-36); Mean Corpuscular Volume 93.4 FL (87-102); Mean Platelet Volume 9.7 FL (9.6-12.0); Monocytes % 7.1 % (1.7-12.7); Neutrophils % 78.9 % (38.7-73.9); Platelet Count 250 T/CUMM (130-400); Red Blood Count 2.74 MC/CUMM (3.8-5.5); Red Cell Distribution Width 17.3 % (9.3-17.3); White Blood Count 12.5 T/CUMM (4-12)
[2019-11-12 06:31] LABS: PT Patient Result 10.5 SECS (9.8-11.9)
[2019-11-12 06:40] LABS: Calcium 7.6 MG/DL (8.5-10.1)
[2019-11-12] MEDS: LEVOTHYROXINE 88 MCG TABLET PO SCH (07:58)
[2019-11-12] MEDS: POTASSIUM CHLORIDE 20 MEQ/15 ML UDCUP PO SCH ×2 (10:01→22:12)
[2019-11-12] MEDS: POLYETHYLENE GLYCOL POWDER 17 GM PACK PO SCH ×2 (10:01→22:04)
[2019-11-12] MEDS: FINASTERIDE 5 MG TABLET PO SCH (10:01)
[2019-11-12] MEDS: PANTOPRAZOLE 40 MG TABLET PO SCH ×2 (10:02→18:48)
[2019-11-12] MEDS: POTASSIUM CHLORIDE 10 MEQ TABLET PO SCH (22:03)
[2019-11-12] MEDS: diphenhydrAMINE CAP 25 MG CAPSULE PO PRN (22:03)
[2019-11-12] MEDS: ATORVASTATIN 20 MG TABLET PO SCH (22:04)
[2019-11-12] MEDS: ACETAMINOPHEN 500 MG TABLET PO PRN (22:04)
[2019-11-12] MEDS: TAMSULOSIN 0.4 MG CAPSULE PO SCH (22:12)
[2019-11-13] MEDS: SODIUM CHLORIDE 0.9% 1,000 ML IV SCH (03:19)
[2019-11-13] MEDS: PANTOPRAZOLE 40 MG TABLET PO SCH (06:04)
[2019-11-13] MEDS: LEVOTHYROXINE 88 MCG TABLET PO SCH (06:04)
[2019-11-13] MEDS: FINASTERIDE 5 MG TABLET PO SCH (10:02)
[2019-11-13] MEDS: POTASSIUM CHLORIDE 10 MEQ TABLET PO SCH (10:02)
[2019-11-13] MEDS: POTASSIUM CHLORIDE 20 MEQ/15 ML UDCUP PO SCH (10:02)
[2019-11-13] MEDS: POLYETHYLENE GLYCOL POWDER 17 GM PACK PO SCH (10:03)
[2019-11-13 10:11] LABS: Basophils % 0.2 % (0.0-0.8); Eosinophils # 0.3 10*3/uL (0.0-0.87); Eosinophils % 2.7 % (0.00-10.9); Hematocrit 26.3 VOL% (42.0-52.0); Hemoglobin 8.5 GM/DL (14.0-18.0); Immature Granulocytes % 0.9 %; Immature Granulocytes Absolute 0.11 #; Lymphocytes # 1.3 10*3/uL (1.4-4.0); Lymphocytes % 10.8 % (21.2-54.2); Mean Corpuscular HGB Conc 32.3 GM/DL (32-36); Mean Corpuscular Volume 93.9 FL (87-102); Mean Platelet Volume 9.2 FL (9.6-12.0); Monocytes % 4.9 % (1.7-12.7); Neutrophils % 80.5 % (38.7-73.9); Platelet Count 267 T/CUMM (130-400); Red Cell Distribution Width 17.2 % (9.3-17.3); White Blood Count 12.4 T/CUMM (4-12)
[2019-11-13 10:42] LABS: Calcium 7.8 MG/DL (8.5-10.1); Osmolality,Calculated 288.8 MOS/KG (273-304)
[2019-11-13 13:21] VITALS: BP 100/57
[2019-11-13] MEDS: ACETAMINOPHEN 325 MG TABLET PO PRN (14:29)
== END 2019-11-13 15:20 | DRG 813 ==
LOC: EDBD → EDUNIT# → N.ED 09:50 → SUATTDRO 12:06 → N.EDINP 12:06 → N.CLINP 17:10 → N.3E 11-11 16:09
PROVIDERS: ADMIT Internal Medicine; ATTEND Emergency Medicine